=== PATIENT | male | born 1960 | race Caucasian/White ===

== ENCOUNTER 2018-07-16 21:22 | Inpatient (IN) | payer BC ==
[2018-07-16] MEDS ORDERED: LEVALBUTEROL (NEB) 1.25 MG/0.5 ML AMP INH (21:31)
[2018-07-16 21:44] LABS: ADD MAN DIFF? NO
[2018-07-16] MEDS: METHYLPREDNISOLONE 125 MG INJ IV (21:59)
[2018-07-16] MEDS: SOD CHLORIDE 0.9% 1,000 ML IV (21:59)
[2018-07-16 22:05] LABS: BASOPHIL # 0.1 10^3/ul (0.0-0.1); BASOPHILS % 0.7 % (0.0-2.0); EOSINOPHILS # 0.3 10^3/ul (0.0-0.5); EOSINOPHILS % 2.8 % (0.0-7.0); HEMATOCRIT 46.6 % (42.0-52.0); HEMOGLOBIN 15.5 g/dl (14.0-18.0); LYMPHOCYTES # 2.5 10^3/ul (0.8-2.9); LYMPHOCYTES % 25.9 % (15.0-51.0); MEAN CORPUSCULAR HGB CONC 33.3 g/dl (32.0-37.0); MEAN CORPUSCULAR VOLUME 90.1 fl (82.0-101.0); MEAN PLATELET VOLUME 11.1 fl (7.4-10.4); MONOCYTE # 0.6 10^3/ul (0.3-0.9); MONOCYTES % 5.9 % (0.0-11.0); NEUTROPHIL # 6.1 10^3/ul (1.6-7.5); NEUTROPHILS % 64.2 % (39.0-77.0); PLATELET COUNT 234 10^3/UL (140-415); RED BLOOD COUNT 5.17 10^6/ul (4.70-6.10); RED CELL DISTRIBUTION WIDTH 13.5 % (11.5-14.5)
[2018-07-16 22:05] LABS: WHITE BLOOD COUNT 9.5 10^3/ul (4.8-10.8)
[2018-07-16] MEDS: ALBUTEROL 0.5% (NEB) 2.5 MG/0.5 ML AMP INH (22:06)
[2018-07-16 22:25] LABS: INR 0.91; PROTIME 12.4 Sec (11.9-14.9)
[2018-07-16 22:26] LABS: PARTIAL THROMBOPLASTIN TIME 28.9 Sec (23.0-35.0)
[2018-07-16 22:35] LABS: ADD UMIC NO; UR ASCORBIC ACID NEGATIVE (NEGATIVE); UR BILIRUBIN (Dip) NEGATIVE (NEGATIVE); UR BLOOD (Dip) NEGATIVE (NEGATIVE); UR CLARITY CLEAR (CLEAR); UR COLOR YELLOW (YELLOW); UR GLUCOSE (Dip) 2+ mg/dL (NEGATIVE); UR KETONES (Dip) NEGATIVE (NEGATIVE); UR LEUKOCYTE ESTERASE (Dip) NEGATIVE Leu/ul (NEGATIVE); UR NITRITE (Dip) NEGATIVE (NEGATIVE); UR TOTAL PROTEIN (Dip) NEGATIVE (NEGATIVE); UR UROBILINOGEN (Dip) NEGATIVE (NEGATIVE)
[2018-07-16 22:55] LABS: ALANINE AMINOTRANSFERASE 38 IU/L (13-69); ALBUMIN 3.8 g/dl (3.3-4.9); ALBUMIN/GLOBULIN RATIO 1.22; ALKALINE PHOSPHATASE 98 IU/L (42-121); AMYLASE 88 U/L (11-123); ANION GAP 7 (5-13); ASPARTATE AMINO TRANSFERASE 30 IU/L (15-46); BILIRUBIN,INDIRECT 0.2 mg/dl (0-1.1); BILIRUBIN,TOTAL 0.2 mg/dl (0.2-1.3); BLOOD UREA NITROGEN 20 mg/dl (7-20); CALCIUM 8.9 mg/dl (8.4-10.2); CARBON DIOXIDE 27 mmol/L (21-31); CHLORIDE 106 mmol/L (97-110); CREATININE 1.14 mg/dl (0.61-1.24); Estimated GFR > 60 mL/min (>60); GLUCOSE 160 mg/dl (70-220); LIPASE 74 U/L (23-300); POTASSIUM 4.4 mmol/L (3.5-5.1); SODIUM 140 mmol/L (135-144); TOTAL PROTEIN 6.9 g/dl (6.1-8.1)
[2018-07-16] MEDS ORDERED: IPRATROPIUM (NEB) 0.5 MG/2.5 ML AMP INH (22:57)
[2018-07-16 23:06] LABS: B-TYPE NATRIURETIC PEPTIDE 64 PG/ML (0-125); TROPONIN-I < 0.012 ng/ml (0.000-0.120)
[2018-07-16] MEDS ORDERED: IOHEXOL 300MG/ML 150 ML BTL (23:20)
[2018-07-16] MEDS ORDERED: SOD CHLORIDE 0.9% 100 ML (23:20)
[2018-07-16] MEDS: FUROSEMIDE 40 MG INJ IV (23:25)
[2018-07-17] MEDS: ONDANSETRON 4 MG INJ IV (00:19)
[2018-07-17] MEDS: HYDROmorphONE 2 MG/ML SYG IV (00:20)
[2018-07-17 01:29] LABS: AADO2 Arterial 539.7 mmHg (7.0-24.0); Arterial Base Excess -2.6 mmol/L (-3.0-3); Arterial Blood Gas Oxygen Sat 97.5 mmHG (95.0-98.0); Arterial COHb 2.6 % (0.0-3.0); Arterial Fraction of Oxyhgb 94.7 % (93.0-99.0); Arterial HCO3 25.4 mmol/L (22.0-26.0); Arterial MetHb 0.3 % (0.0-1.5); Arterial pCO2 56.3 mmhg (35-45); MODE MASK - NRB; Site Right Radial
[2018-07-17] MEDS ORDERED: ONDANSETRON 4 MG INJ IV (06:30)
[2018-07-17] MEDS ORDERED: HYDROCODONE/APAP (5/325) TAB PO ×2 (06:30)
[2018-07-17] MEDS ORDERED: NACL 0.9% 3 ML SYG IV (06:30)
[2018-07-17] MEDS ORDERED: ALBUTEROL/IPRATROPIUM (NEB) 3 ML AMP HHN (06:30)
[2018-07-17] MEDS ORDERED: ACETAMINOPHEN 325 MG TAB PO (06:30)
[2018-07-17] MEDS ORDERED: GLUCOSE GEL 15 GRAM TUBE BUCCAL (07:30)
[2018-07-17] MEDS ORDERED: DEXTROSE 50% 50 ML SYRINGE IV ×2 (07:30)
[2018-07-17] MEDS ORDERED: GLUCOSE GEL 15 GRAM TUBE PO ×2 (07:30)
[2018-07-17] MEDS ORDERED: GLUCAGON 1 MG INJ IM (07:30)
[2018-07-17 08:22] LABS: ADD MAN DIFF? NO
[2018-07-17 08:24] LABS: BASOPHILS % 0.2 % (0.0-2.0); EOSINOPHILS % 0.1 % (0.0-7.0); HEMATOCRIT 48.6 % (42.0-52.0); HEMOGLOBIN 15.9 g/dl (14.0-18.0); LYMPHOCYTES # 0.7 10^3/ul (0.8-2.9); LYMPHOCYTES % 7.9 % (15.0-51.0); MEAN CORPUSCULAR HEMOGLOBIN 29.8 pg (29.0-33.0); MEAN CORPUSCULAR HGB CONC 32.7 g/dl (32.0-37.0); MEAN CORPUSCULAR VOLUME 91.2 fl (82.0-101.0); MEAN PLATELET VOLUME 10.3 fl (7.4-10.4); MONOCYTE # 0.1 10^3/ul (0.3-0.9); MONOCYTES % 0.7 % (0.0-11.0); NEUTROPHIL # 8.3 10^3/ul (1.6-7.5); NEUTROPHILS % 90.6 % (39.0-77.0); PLATELET COUNT 206 10^3/UL (140-415); RED BLOOD COUNT 5.33 10^6/ul (4.70-6.10); RED CELL DISTRIBUTION WIDTH 13.3 % (11.5-14.5)
[2018-07-17 08:24] LABS: WHITE BLOOD COUNT 9.2 10^3/ul (4.8-10.8)
[2018-07-17 08:40] LABS: HEMOGLOBIN A1C 7.7 % (0-5.9)
[2018-07-17] MEDS ORDERED: metFORMIN 500 MG TAB PO ×2 (09:00→12:00)
[2018-07-17] MEDS ORDERED: LINAGLIPTIN 5 MG TABLET PO (09:00)
[2018-07-17] MEDS ORDERED: NON-FORMULARY/PATIENT OWN MED (Sitagliptin Phos/Metformin HCl (Janumet 50-500 mg Tablet) 1 PO (09:00)
[2018-07-17 09:02] LABS: ALANINE AMINOTRANSFERASE 40 IU/L (13-69); ALBUMIN 4.5 g/dl (3.3-4.9); ALKALINE PHOSPHATASE 110 IU/L (42-121); ANION GAP 11 (5-13); ASPARTATE AMINO TRANSFERASE 33 IU/L (15-46); BILIRUBIN,INDIRECT 0.1 mg/dl (0-1.1); BILIRUBIN,TOTAL 0.1 mg/dl (0.2-1.3); BLOOD UREA NITROGEN 24 mg/dl (7-20); CALCIUM 9.2 mg/dl (8.4-10.2); CARBON DIOXIDE 26 mmol/L (21-31); CHLORIDE 105 mmol/L (97-110); CHOL/HDL RATIO 4.4 RATIO; CHOLESTEROL 237 mg/dl (100-200); CREATININE 0.84 mg/dl (0.61-1.24); Estimated GFR > 60 mL/min (>60); GLUCOSE 285 mg/dl (70-220); HDL CHOLESTEROL 53 mg/dl (28-71); LDL CHOLESTEROL,CALCULATED 167 mg/dl; POTASSIUM 5.1 mmol/L (3.5-5.1); SODIUM 142 mmol/L (135-144); TOTAL PROTEIN 7.7 g/dl (6.1-8.1); TRIGLYCERIDES 87 mg/dl (0-149)
[2018-07-17 09:18] LABS: AADO2 Arterial 143.7 mmHg (7.0-24.0); Allen Test ACCEPTAB; Arterial Base Excess -1.1 mmol/L (-3.0-3); Arterial Blood Gas Oxygen Sat 94.1 mmHG (95.0-98.0); Arterial COHb 1.3 % (0.0-3.0); Arterial Fraction of Oxyhgb 92.6 % (93.0-99.0); Arterial HCO3 26.8 mmol/L (22.0-26.0); Arterial MetHb 0.3 % (0.0-1.5); Arterial pCO2 57.1 mmhg (35-45); Blood Gas IEPAP 18/5; Blood Gas PS 13; MODE MASK - BIPAP; Site Right Radial
[2018-07-17] MEDS: ISOSORBIDE MONONITRATE(SR)60 MG TAB PO (11:58)
[2018-07-17] MEDS: METOPROLOL (XL) 25 MG TAB PO (11:59)
[2018-07-17] MEDS: DICLOFENAC (EC) 75 MG TAB PO ×2 (11:59→20:24)
[2018-07-17] MEDS: LISINOPRIL 10 MG TAB PO (12:00)
[2018-07-17] MEDS: METHYLPREDNISOLONE 40 MG INJ IV ×2 (12:11→18:00)
[2018-07-17] MEDS: ASPIRIN (EC) 81 MG TAB PO (12:11)
[2018-07-17] MEDS: HEPARIN 5,000 UNIT/1 ML VIAL SC ×2 (12:11→21:26)
[2018-07-17] MEDS: INSULIN GLARGINE [LANTus] (100 UNITS/ML) SYG SC (13:22)
[2018-07-17] MEDS: LEVOFLOXACIN 500MG/D5W (PMX) 100 ML IVPB (13:36)
[2018-07-17] MEDS: ALBUTEROL/IPRATROPIUM (NEB) 3 ML AMP HHN ×2 (14:17→19:38)
[2018-07-17] MEDS: INSULIN ASPART [NOVOLOG] 3 ML PEN SC ×2 (20:24→23:36)
[2018-07-17] MEDS: ATORVASTATIN 20 MG TAB PO (21:12)
[2018-07-18] MEDS: METHYLPREDNISOLONE 40 MG INJ IV ×4 (00:37→17:54)
[2018-07-18] MEDS: ALBUTEROL/IPRATROPIUM (NEB) 3 ML AMP HHN ×4 (01:13→20:49)
[2018-07-18 03:48] LABS: ADD MAN DIFF? NO
[2018-07-18 04:08] LABS: ALANINE AMINOTRANSFERASE 38 IU/L (13-69); ALBUMIN/GLOBULIN RATIO 1.29; ALKALINE PHOSPHATASE 103 IU/L (42-121); ANION GAP 10 (5-13); ASPARTATE AMINO TRANSFERASE 29 IU/L (15-46); BILIRUBIN,INDIRECT 0.1 mg/dl (0-1.1); BILIRUBIN,TOTAL 0.1 mg/dl (0.2-1.3); BLOOD UREA NITROGEN 28 mg/dl (7-20); CALCIUM 9.7 mg/dl (8.4-10.2); CARBON DIOXIDE 28 mmol/L (21-31); CHLORIDE 105 mmol/L (97-110); CREATININE 0.75 mg/dl (0.61-1.24); Estimated GFR > 60 mL/min (>60); GLUCOSE 263 mg/dl (70-220); POTASSIUM 4.8 mmol/L (3.5-5.1); SODIUM 143 mmol/L (135-144); TOTAL PROTEIN 7.1 g/dl (6.1-8.1)
[2018-07-18 04:09] LABS: MAGNESIUM 2.3 mg/dl (1.7-2.5)
[2018-07-18 04:09] LABS: PHOSPHORUS 4.2 mg/dl (2.5-4.9)
[2018-07-18 04:12] LABS: BASOPHILS % 0.1 % (0.0-2.0); EOSINOPHILS % 0.1 % (0.0-7.0); HEMATOCRIT 47.4 % (42.0-52.0); HEMOGLOBIN 15.3 g/dl (14.0-18.0); LYMPHOCYTES # 0.8 10^3/ul (0.8-2.9); LYMPHOCYTES % 6.7 % (15.0-51.0); MEAN CORPUSCULAR HEMOGLOBIN 29.4 pg (29.0-33.0); MEAN CORPUSCULAR HGB CONC 32.3 g/dl (32.0-37.0); MEAN CORPUSCULAR VOLUME 91.2 fl (82.0-101.0); MEAN PLATELET VOLUME 10.6 fl (7.4-10.4); MONOCYTE # 0.2 10^3/ul (0.3-0.9); MONOCYTES % 1.9 % (0.0-11.0); NEUTROPHIL # 10.7 10^3/ul (1.6-7.5); NEUTROPHILS % 90.6 % (39.0-77.0); PLATELET COUNT 216 10^3/UL (140-415); RED CELL DISTRIBUTION WIDTH 13.5 % (11.5-14.5)
[2018-07-18 04:12] LABS: WHITE BLOOD COUNT 11.8 10^3/ul (4.8-10.8)
[2018-07-18 04:53] LABS: LACTIC ACID 2.5 mmol/L (0.5-2.0)
[2018-07-18] MEDS: DICLOFENAC (EC) 75 MG TAB PO ×2 (07:59→17:54)
[2018-07-18] MEDS: INSULIN ASPART [NOVOLOG] 3 ML PEN SC ×4 (08:06→22:09)
[2018-07-18 08:10] LABS: AADO2 Arterial 149.4 mmHg (7.0-24.0); Allen Test ACCEPTAB; Arterial Blood Gas Oxygen Sat 96.1 mmHG (95.0-98.0); Arterial COHb 0.5 % (0.0-3.0); Arterial Fraction of Oxyhgb 95.3 % (93.0-99.0); Arterial HCO3 28.1 mmol/L (22.0-26.0); Arterial MetHb 0.3 % (0.0-1.5); Arterial pCO2 44.7 mmhg (35-45); Blood Gas PS 12; MODE MASK - BIPAP; Site Right Radial
[2018-07-18] MEDS: ASPIRIN (EC) 81 MG TAB PO (09:50)
[2018-07-18] MEDS: HEPARIN 5,000 UNIT/1 ML VIAL SC ×2 (09:51→21:55)
[2018-07-18] MEDS: ISOSORBIDE MONONITRATE(SR)60 MG TAB PO (09:52)
[2018-07-18] MEDS: LISINOPRIL 10 MG TAB PO (09:52)
[2018-07-18] MEDS: METOPROLOL (XL) 25 MG TAB PO (09:52)
[2018-07-18] MEDS: LEVOFLOXACIN 500MG/D5W (PMX) 100 ML IVPB (12:45)
[2018-07-18] MEDS: ATORVASTATIN 20 MG TAB PO (21:53)
[2018-07-19] MEDS: ALBUTEROL/IPRATROPIUM (NEB) 3 ML AMP HHN ×4 (01:07→20:36)
[2018-07-19] MEDS: METHYLPREDNISOLONE 40 MG INJ IV ×4 (01:45→20:53)
[2018-07-19 07:02] LABS: ADD MAN DIFF? NO
[2018-07-19 07:09] LABS: BASOPHILS % 0.2 % (0.0-2.0); HEMATOCRIT 46.8 % (42.0-52.0); HEMOGLOBIN 15.4 g/dl (14.0-18.0); LYMPHOCYTES # 0.8 10^3/ul (0.8-2.9); LYMPHOCYTES % 6.5 % (15.0-51.0); MEAN CORPUSCULAR HEMOGLOBIN 30.3 pg (29.0-33.0); MEAN CORPUSCULAR HGB CONC 32.9 g/dl (32.0-37.0); MEAN CORPUSCULAR VOLUME 91.9 fl (82.0-101.0); MEAN PLATELET VOLUME 10.5 fl (7.4-10.4); MONOCYTE # 0.3 10^3/ul (0.3-0.9); NEUTROPHIL # 11.7 10^3/ul (1.6-7.5); NEUTROPHILS % 90.4 % (39.0-77.0); PLATELET COUNT 214 10^3/UL (140-415); RED BLOOD COUNT 5.09 10^6/ul (4.70-6.10); RED CELL DISTRIBUTION WIDTH 13.3 % (11.5-14.5)
[2018-07-19 07:09] LABS: WHITE BLOOD COUNT 12.9 10^3/ul (4.8-10.8)
[2018-07-19 07:26] LABS: ALANINE AMINOTRANSFERASE 41 IU/L (13-69); ALBUMIN 4.1 g/dl (3.3-4.9); ALKALINE PHOSPHATASE 101 IU/L (42-121); ASPARTATE AMINO TRANSFERASE 26 IU/L (15-46); BILIRUBIN,INDIRECT 0.2 mg/dl (0-1.1); BILIRUBIN,TOTAL 0.2 mg/dl (0.2-1.3); TOTAL PROTEIN 7.2 g/dl (6.1-8.1)
[2018-07-19 07:32] LABS: ANION GAP 9 (5-13); BLOOD UREA NITROGEN 34 mg/dl (7-20); CARBON DIOXIDE 28 mmol/L (21-31); CHLORIDE 104 mmol/L (97-110); CREATININE 0.88 mg/dl (0.61-1.24); Estimated GFR > 60 mL/min (>60); GLUCOSE 262 mg/dl (70-220); POTASSIUM 4.7 mmol/L (3.5-5.1); SODIUM 141 mmol/L (135-144)
[2018-07-19] MEDS: ISOSORBIDE MONONITRATE(SR)60 MG TAB PO (08:10)
[2018-07-19] MEDS: LISINOPRIL 10 MG TAB PO (08:10)
[2018-07-19] MEDS: DICLOFENAC (EC) 75 MG TAB PO ×2 (08:10→17:10)
[2018-07-19] MEDS: HEPARIN 5,000 UNIT/1 ML VIAL SC ×2 (08:11→20:56)
[2018-07-19] MEDS: METOPROLOL (XL) 25 MG TAB PO (08:11)
[2018-07-19] MEDS: ASPIRIN (EC) 81 MG TAB PO (08:11)
[2018-07-19] MEDS: INSULIN GLARGINE [LANTus] (100 UNITS/ML) SYG SC (08:12)
[2018-07-19] MEDS: INSULIN ASPART [NOVOLOG] 3 ML PEN SC ×4 (08:13→21:00)
[2018-07-19] MEDS: LEVOFLOXACIN 500MG/D5W (PMX) 100 ML IVPB (11:52)
[2018-07-19] MEDS: ATORVASTATIN 20 MG TAB PO (20:54)
[2018-07-20] MEDS: ALBUTEROL/IPRATROPIUM (NEB) 3 ML AMP HHN ×3 (02:02→13:05)
[2018-07-20] MEDS: INSULIN ASPART [NOVOLOG] 3 ML PEN SC ×3 (03:02→11:50)
[2018-07-20] MEDS: ACCU-CHEK XX (03:39)
[2018-07-20] MEDS: hydrALAzine 20 MG INJ IV (05:11)
[2018-07-20] MEDS: LEVOFLOXACIN 500 MG TAB PO (05:12)
[2018-07-20 06:53] LABS: ADD MAN DIFF? NO
[2018-07-20 06:58] LABS: WHITE BLOOD COUNT 12.3 10^3/ul (4.8-10.8)
[2018-07-20 06:58] LABS: BASOPHILS % 0.2 % (0.0-2.0); EOSINOPHILS % 0.2 % (0.0-7.0); HEMOGLOBIN 16.1 g/dl (14.0-18.0); LYMPHOCYTES # 1.4 10^3/ul (0.8-2.9); LYMPHOCYTES % 11.7 % (15.0-51.0); MEAN CORPUSCULAR HEMOGLOBIN 29.6 pg (29.0-33.0); MEAN CORPUSCULAR HGB CONC 32.9 g/dl (32.0-37.0); MEAN CORPUSCULAR VOLUME 90.1 fl (82.0-101.0); MEAN PLATELET VOLUME 10.4 fl (7.4-10.4); MONOCYTE # 0.8 10^3/ul (0.3-0.9); MONOCYTES % 6.1 % (0.0-11.0); NEUTROPHIL # 9.9 10^3/ul (1.6-7.5); NEUTROPHILS % 80.4 % (39.0-77.0); PLATELET COUNT 216 10^3/UL (140-415); RED BLOOD COUNT 5.44 10^6/ul (4.70-6.10); RED CELL DISTRIBUTION WIDTH 13.5 % (11.5-14.5)
[2018-07-20 07:22] LABS: ANION GAP 10 (5-13); BLOOD UREA NITROGEN 27 mg/dl (7-20); CALCIUM 9.4 mg/dl (8.4-10.2); CARBON DIOXIDE 26 mmol/L (21-31); CHLORIDE 104 mmol/L (97-110); CREATININE 0.76 mg/dl (0.61-1.24); Estimated GFR > 60 mL/min (>60); GLUCOSE 263 mg/dl (70-220); POTASSIUM 4.3 mmol/L (3.5-5.1); SODIUM 140 mmol/L (135-144)
[2018-07-20] MEDS: DICLOFENAC (EC) 75 MG TAB PO (07:57)
[2018-07-20] MEDS: INSULIN GLARGINE [LANTus] (100 UNITS/ML) SYG SC (08:06)
[2018-07-20] MEDS: METOPROLOL (XL) 25 MG TAB PO (08:49)
[2018-07-20] MEDS: ASPIRIN (EC) 81 MG TAB PO (08:50)
[2018-07-20] MEDS: ISOSORBIDE MONONITRATE(SR)60 MG TAB PO (08:50)
[2018-07-20] MEDS: LISINOPRIL 10 MG TAB PO (08:50)
[2018-07-20] MEDS: METHYLPREDNISOLONE 40 MG INJ IV (08:50)
[2018-07-20] MEDS: HEPARIN 5,000 UNIT/1 ML VIAL SC (09:28)
== END 2018-07-20 14:55 | disposition home or self-care (01) | DRG 190 ==
LOC: E/R 21:22 → TEL 07-17 01:19
PROVIDERS: Internal Medicine
PROC: 5A09457 Assistance with Respiratory Ventilation, 24-96 Consecutive Hours, Continuous Positive Airway Pressure (ICD-10-PCS; principal; 2018-07-16)
PROC: 4A133R1 Monitoring of Arterial Saturation, Peripheral, Percutaneous Approach (ICD-10-PCS; 2018-07-17)
DX: J44.1 Chronic obstructive pulmonary disease with (acute) exacerbation (principal); J96.21 Acute and chronic respiratory failure with hypoxia; J96.22 Acute and chronic respiratory failure with hypercapnia; Z68.42 Body mass index [BMI] 45.0-49.9, adult; J44.0 Chronic obstructive pulmonary disease with (acute) lower respiratory infection; J20.9 Acute bronchitis, unspecified; E66.01 Morbid (severe) obesity due to excess calories; Z71.3 Dietary counseling and surveillance; I10 Essential (primary) hypertension; E11.9 Type 2 diabetes mellitus without complications; E78.5 Hyperlipidemia, unspecified; K83.8 Other specified diseases of biliary tract; G47.33 Obstructive sleep apnea (adult) (pediatric); K76.0 Fatty (change of) liver, not elsewhere classified; Z79.82 Long term (current) use of aspirin
CPT/HCPCS: 36415; 36600; 71045; 76705; 80048; 80053; 80061; 80076; 81003; 82150; 82803; 82962; 83036; 83605; 83690; 83735; 83880; 84100; 84484; 85025; 85610; 85730; 87040-91; 87086; 93005; 93306; 94640; 94644; 94660; 94664; 96374; 96375; 99291-25